=== PATIENT | male | born 1985 | race Caucasian/White ===

== ENCOUNTER 2019-07-23 16:22 | Emergency (ER) | payer OTHER ==
[~2019-07-23] VITALS: Ht 172.7 cm; Wt 79.4 kg
[2019-07-23 16:37] VITALS: BP 140/87
[2019-07-23] MEDS ORDERED: AZIT250T PO (16:50)
--- NOTE | 2019-07-23 16:50 | PHYS DOC ---
Adult General Chief Complaint Chief Complaint: COUGH HPI HPI Patient is a 33-year-old male who presents with complaint of productive cough, fever, chills and body aches for the last 4-5 days. Patient states that his cough is been productive of green sputum. He denies any chest pain or shortness of breath. Patient states that he has been taking [id number] medication for symptoms but is just not getting any better.[] Review of Systems Review of Systems Constitutional: Positive fever and chills [] Respiratory: Positive productive cough without shortness of breath [] Cardiovascular: No additional information not addressed in HPI [] Musculoskeletal: Positive body aches/pain [] Integument: Denies rash or skin lesions [] Physical Exam Physical Exam Constitutional: Well developed, well nourished, no acute distress, non-toxic appearance. [] HENT: Normocephalic, atraumatic, bilateral external ears normal, oropharynx moist, no oral exudates, nose normal. [] Cardiovascular:Heart rate regular rhythm, no murmur [] Lungs & Thorax: Bilateral breath sounds clear to auscultation [] Neurologic: Alert and oriented X 3, no focal deficits noted. [] EKG EKG [] Radiology/Procedures Radiology/Procedures [] Course & Med Decision Making Course & Med Decision Making Pertinent Labs and Imaging studies reviewed. (See chart for details) [] Dragon Disclaimer Dragon Disclaimer This electronic medical record was generated, in whole or in part, using a voice recognition dictation system. Departure Departure: Impression: Primary Impression: Acute bronchitis Disposition: 01 HOME, SELF-CARE Condition: STABLE Referrals: PCP,NO (PCP) Patient Instructions: Acute Bronchitis Scripts Azithromycin (ZITHROMAX) 250 Mg Tablet 1 PKG PO UD for infection, #6 TAB Prov: MANISH NAM Jr. DO 07/23/19 Problem Qualifiers Primary Impression: Acute bronchitis Bronchitis organism: unspecified organism Qualified Codes: J20.9 - Acute bronchitis, unspecified MANISH NAM Jr. DO Jul 23, 2019 16:50
[2019-07-23 17:25] LABS: INFLUENZA A PATIENT NEGATIVE (NEGATIVE); INFLUENZA B PATIENT NEGATIVE (NEGATIVE)
== END 2019-07-23 17:35 | disposition home or self-care (01) ==
LOC: ER 16:22
DX: J20.9 Acute bronchitis, unspecified (principal)
CPT/HCPCS: 87804; 99284

== ENCOUNTER 2020-08-17 17:25 | Emergency (ER) | payer OTHER ==
[~2020-08-17] VITALS: Ht 172.7 cm; Wt 78.1 kg
[~2020-08-17 17:25] MED LIST: AZIT250T PO
[2020-08-17 18:19] VITALS: BP 127/82
--- NOTE | 2020-08-17 18:53 | RAD ---
INDICATION: Reason: R upper extremity pain and bruising after donating plasma 08/15/20 / Spl. Instruct ions: / History: COMPARISON: None. TECHNIQUE: Grayscale, color and doppler ultrasound images were obtained of the right upper extremity venous vasculature. RIGHT: No thrombus identified in the internal jugular, subclavian, axillary, brachial, basilic, cephalic, ra dial or ulnar veins. IMPRESSION: 1. No thrombus identified in deep venous system of right upper extremity. Electronically signed by: Abdirahman Rose MD (08/17/2020 6:51 PM) [id number]
--- NOTE | 2020-08-17 19:25 | PHYS DOC ---
Past History Past Medical History: No Pertinent History Past Surgical History: No Surgical History Additional Past Surgical Histo: knee surgery (left) Additional Smoking Information: admits to chew Alcohol Use: Rarely Drug Use: None General Adult EDM: Chief Complaint: UPPER EXTREMITY SWELLING HPI: HPI: Patient is a 34-year-old male who presents emergency department with complaints of bruising and tightness to his right lower bicep and proximal forearm after donating plasma 2 days ago. He states that the area feels tight, he denies any decreased range of motion. He denies any numbness, tingling, weakness, or decreased sensation of the affected extremity. Patient reports that the symptoms started after he had gone to the plasma center and donated 2 days ago. He currently denies any pain. Review of Systems: Review of Systems: Complete ROS is negative unless otherwise noted in HPI. Allergies: Allergies: Allergies Coded Allergies Type Severity Reaction Last Updated Verified No Known Drug Allergies 08/17/20 No Physical Exam: PE: See Above Constitutional: Well developed, well nourished, no acute distress, non-toxic appearance. [] HENT: Normocephalic, atraumatic, bilateral external ears normal, nose normal. [] Eyes: PERRLA, EOMI, conjunctiva normal, no discharge. [] Neck: Normal range of motion, no stridor. [] Cardiovascular:Heart rate regular rhythm Lungs & Thorax: Respirations even and unlabored, no retractions, no respiratory distress Skin: Warm, dry, no erythema; hematoma noted to the anterior right bicep and right proximal anterior forearm Extremities: Right arm: No tenderness to palpation, no cyanosis, ROM intact, 1+ edema to right distal humerus right proximal forearm Neurologic: Alert and oriented X 3, no focal deficits noted. [] Psychologic: Affect normal, judgement normal, mood normal. [] Current Patient Data: Vital Signs: Vital Signs Date Time Temp Pulse Resp B/P (MAP) Pulse Ox O2 Delivery O2 Flow Rate FiO2 08/17/20 18:19 87 16 127/82 (97) 98 Room Air 08/17/20 17:25 98.1 EKG: EKG: [] Radiology/Procedures: Radiology/Procedures: PROCEDURE: VENOUS UPPER EXTREMITY RIGHT INDICATION: Reason: R upper extremity pain and bruising after donating plasma 08/15/20 / Spl. Instructions: / History: COMPARISON: None. TECHNIQUE: Grayscale, color and doppler ultrasound images were obtained of the right upper extremity venous vasculature. RIGHT: No thrombus identified in the internal jugular, subclavian, axillary, brachial, basilic, cephalic, radial or ulnar veins. IMPRESSION: 1. No thrombus identified in deep venous system of right upper extremity. Electronically signed by: Abdirahman Rose MD (08/17/2020 6:51 PM) [id number] [] Heart Score: Risk Factors: Risk Factors: DM, Current or recent (<one month) smoker, HTN, HLP, family history of CAD, obesity. Risk Scores: Score 0 - 3: 2.5% MACE over next 6 weeks - Discharge Home Score 4 - 6: 20.3% MACE over next 6 weeks - Admit for Clinical Observation Score 7 - 10: 72.7% MACE over next 6 weeks - Early Invasive Strategies Course & Med Decision Making: Course & Med Decision Making Pertinent Labs and Imaging studies reviewed. (See chart for details) [] Dragon Disclaimer: Dragon Disclaimer: This electronic medical record was generated, in whole or in part, using a voice recognition dictation system. Departure Departure: Impression: Primary Impression: Traumatic hematoma of right upper arm Qualified Codes: S40.021A - Contusion of right upper arm, initial encounter Additional Impression: Traumatic hematoma of right forearm Qualified Codes: S50.11XA - Contusion of right forearm, initial encounter Disposition: 01 DC HOME SELF CARE/HOMELESS Condition: STABLE Referrals: PCP,UNKNOWN (PCP) Patient Instructions: Hematoma, [id number] Additional Instructions: Follow the instructions provided. Follow up with your Primary care doctor in 1-2 days. Return to the ER if symptoms worsen. EVONNE BRENNAN APRN Aug 17, 2020 19:25
== END 2020-08-17 19:35 | disposition home or self-care (01) ==
LOC: ER 17:25
DX: S40.021A Contusion of right upper arm, initial encounter (principal); S50.11XA Contusion of right forearm, initial encounter; F17.220 Nicotine dependence, chewing tobacco, uncomplicated; X58.XXXA Exposure to other specified factors, initial encounter; Y93.89 Activity, other specified; Y92.89 Other specified places as the place of occurrence of the external cause; Y99.8 Other external cause status
CPT/HCPCS: 93971; 99284